=== PATIENT | female | born 1990 | race Caucasian/White ===

== ENCOUNTER 2022-04-29 14:08 | Emergency (ER) | payer MEDICAID ==
[2022-04-29] MEDS ORDERED: LORazepam 1 MG Tab PO ONE (16:59)
[2022-04-29] MEDS ORDERED: Nicotine 21 MG/24 Hr Patch TRDERM ONE (17:20)
== END 2022-04-29 17:49 | disposition home or self-care (01) ==
LOC: JP.ED 14:08
DX: F32.A Depression, unspecified (principal); F15.11 Other stimulant abuse, in remission; Z72.0 Tobacco use; Z88.8 Allergy status to other drugs, medicaments and biological substances; Z88.2 Allergy status to sulfonamides; Z91.048 Other nonmedicinal substance allergy status
CPT/HCPCS: 99284; A9270